=== PATIENT | male | born 1965 | race Caucasian/White ===

== ENCOUNTER 2019-05-02 10:00 | Outpatient (CLI) | payer OTHER, SELFPAY ==
--- NOTE | ~2019-05-02 | XR_ITS ---
EXAMINATION: XR lg joint inject/asp w image DATE: 05/02/2019 10:59 INDICATION: Unilateral primary osteoarthritis, left hip. TECHNIQUE: A time-out was performed to verify the patient's name, date of , and procedure to b e performed. The procedure including the risks, benefits, and alternatives was discussed with the pat ient. Risks discussed included bleeding and infection. The patient understood the risks and agreed to proceed. The skin overlying the left hip joint was prepped and draped in usual sterile fashion. An esthetic was administered with 1% lidocaine subcutaneously. A 22 G needle was advanced under fluoros copic guidance into the joint. Injection of 1 mL of Omnipaque 240 confirmed intra-articular position of the needle. Subsequently, injectate consisting of 5 mL 1% lidocaine and 2 mL 10 mg/mL Kenalog wa s instilled. The needle was removed and the entry site was cleaned and dressed. There were no immed iate complications. Fluoroscopy exposure time was 0.1 minutes. The total number of images was 2. FINDINGS: Real-time fluoroscopy demonstrates the needle in the left hip joint. There is contrast in t he hip joint and iliopsoas bursa. Patient's pain prior to procedure:3/10. Patient's pain following t he procedure: 0/10. IMPRESSION: 1. Left hip joint injection of local anesthetic and steroid with decrease in the patient's presenting pain. Reviewed, dictated and finalized at location A. IMPRESSION: 1. Left hip joint injection of local anesthetic and steroid with decrease in th e patient's presenting pain.
== END 2019-05-02 10:01 | disposition home or self-care (01) ==
PROVIDERS: PCP Family Medicine; Visit Provider Orthopaedic Surgery
DX: M16.11 Unilateral primary osteoarthritis, right hip (principal)
CPT/HCPCS: 20610; 77002; Q9966

== ENCOUNTER 2019-07-04 09:00 | Outpatient (RCR) | payer OTHER, SELFPAY ==
--- NOTE | 2019-05-09 15:46 | PTOPEVAL ---
Thank you for referring this patient to [facility]. Please review, sign, date and return this plan of care NICOLE. Pt referred to therapy due to low back pain and left hip pain. He requires additional skilled therapy to address impairments of muscle weakness, decreased hip motion, and soft tissue restriction. He requires additional skilled therapy 1-2x/wk x 6 wk. I agree with and certify that the following plan of care is medically necessary. Referring Physician Date Attending Provider: Kevin Frias MD Referring Provider: *PT Outpatient Evaluation Start: 05/09/19 14:45 Freq: Status: Active Protocol: Document 05/09/19 14:44 CAP (Rec: 05/09/19 15:44 CAP [id number]) Therapy Assessment Status Assessment Status Assessment Status Evaluation Outpatient Past Medical History Musculoskeletal History Hx Arthritis Yes Hx Orthopedic Surgery Yes: RTC repair-right, and arthroscopic sx left Hx Other Musculoskeletal Disorders Yes: CTR- right Evaluation Information Problem Diagnosis left hip pain, OA left hip and back pain Onset 1 year Cause progression Subjective Information Pt c/o left hip pain and shruthi Query Text:As Reported By Patient/ low back. He reports increased Family pain of left hip with sitting , hip motion in seated position, sleeping. Reports difficulty riding his motorcycle. Pain increases with work activities of kneeling, climbing ladders and carrying objects. Improved hip pain with walking , but increases with prolonged walking. Reports his back pain is constant ache that is not relieved by any activity. Increased pain with trunk flex . He did have a fall over the weekned in the bathroom. Reports he received an injection in his left hip with improve pain. Diagnostic Tests X-Rays For This Problem Yes Previous Treatments Previous Treatments For This Problem not for hip or back Prior Level of Function Activity Level (Last 3 Months) Occupation albrecht Hand Dominance Right Activity of Daily Living Ability Independent Indoor/Home Mobility Independent Community Mobility Independent Stairs
--- NOTE | 2019-06-06 11:58 | PTOPEVAL ---
Thank you for referring Terry Headley to [facility]. Please review, sign, date and return this plan of care NICOLE. Pt has received 5 therapy visits to address hip and back pain. He is progressing towards his therapy goals with improved pain, improve function, improved LE strength. He requires additional skilled therapy to address remaining therapy goals, improve function and address soft tissue restrictions with decreased hip motion. Recommend 1x/wk x 4 wk. I agree with and certify that the following plan of care is medically necessary. Referring Physician Date Attending Provider: Kevin Frias MD Referring Provider: *PT Outpatient Evaluation Start: 05/09/19 14:45 Freq: Status: Active Protocol: Document 06/06/19 09:00 LATASHA (Rec: 06/06/19 09:37 CAP [id number]) Therapy Assessment Status Assessment Status Assessment Status Re-evaluation Outpatient Past Medical History Musculoskeletal History Hx Arthritis Yes Hx Orthopedic Surgery Yes: RTC repair-right, and arthroscopic sx left Hx Other Musculoskeletal Disorders Yes: CTR- right Evaluation Information Problem Diagnosis left hip pain, OA left hip and back pain Onset 1 year Cause progression Additional Evaluation Detail Reports he received an injection in his left hip with improve pain. Subjective Information Pt reports he is feeling Query Text:As Reported By Patient/ better since he started Family therapy. He reports only mild hip pain with prolonged sitting. The pain is not waking him at night. He is able to perform functional task of climbing ladder and carrying objecting is better, but he still has difficulty with getting on/off the ground. He has not been able to perform any longer distance walking, denies pain with walking for work task. He has not been able to ride his motorcycle due to weather. Pain Assessment Timing of Pain Assessment Timing of Pain Assessment Re-assessment Pain Scale Pain Scale Used Numeric (1 - 10) Self Report Pain Assessment Bilateral Lower Back Reported Pain Level 4 Pain Description Aching,Dull Pain Frequency Chronic,Continuous Lowest Pain Intensity 2 Greatest Pain Intensity 4 Pain Aggravating Factors
--- NOTE | 2019-07-04 11:41 | PTOPEVAL ---
Thank you for referring Terry Headley to [facility]. Please review, sign, date and return this plan of care NICOLE. Pt has received 9 therapy visits from 05/08-07/04/19 to address back and hip pain. He demonstrates improved motion, improved LE and trunk strength, decreased pain and improved function. He is performing a HEP indep. He has reached maximal potential with skilled therapy at this time. DC skilled therapy services at this time. I agree with and certify that the following plan of care is medically necessary. Referring Physician Date Attending Provider: Kevin Frias MD PT Discharge Summary *PT Outpatient Evaluation Start: 05/09/19 14:45 Freq: Status: Active Protocol: Document 07/04/19 09:03 LATASHA (Rec: 07/04/19 09:44 [facility] [id number]) Therapy Assessment Status Assessment Status Assessment Status Re-evaluation Evaluation Information Problem Diagnosis left hip pain, OA left hip and back pain Onset 1 year Cause progression Additional Evaluation Detail Reports he received an injection in his left hip with improve pain. x-ray on 06/26/19 shows thoraciclumbar scoliosis, joint spurs and degeneratice changes in lumbar region. Subjective Information He reports increased back and Query Text:As Reported By Patient/ hip pain the past week. He is Family having difficulty sleeping again. He does not have hip pain with sitting, but he is more active with the weather changes. He is again having difficulty negotiating ladder. No difficulty carrying objects. Denies any significant difficulty getting on/off the ground. Pain Assessment Timing of Pain Assessment Timing of Pain Assessment Re-assessment Pain Scale Pain Scale Used Numeric (1 - 10) Self Report Pain Assessment Bilateral Lower Back Reported Pain Level 3 Pain Description Aching,Dull Pain Frequency Chronic Lowest Pain Intensity 3 Greatest Pain Intensity 4 Pain Aggravating Factors Bending,Stair Climbing Pain Behaviors None Pain Relief Interventions Used By Exercise Patient Left Hip(s) Reported Pain Level 1 Pain Description Aching,Dull Pain Frequency Chronic,Con
== END 2019-07-04 12:00 | disposition home or self-care (01) ==
LOC: ANHPT 09:00
PROVIDERS: PCP Family Medicine; Visit Provider Orthopaedic Surgery
DX: M16.12 Unilateral primary osteoarthritis, left hip (principal); M54.5 Low back pain
CPT/HCPCS: 97110; 97140; 97162

== ENCOUNTER 2019-07-10 07:43 | Outpatient (CLI) | payer OTHER, SELFPAY ==
--- NOTE | ~2019-07-10 | MR_ITS ---
EXAMINATION: MR lumbar spine wo con DATE: 07/10/2019 08:49 INDICATION: Lumbar spondylosis TECHNIQUE: Magnetic resonance imaging (MRI) of the lumbar spine was performed without intravenous con trast. Sequences included sagittal T2-weighted FSE, sagittal T2-weighted FS FSE, sagittal T1-weighted FSE, and axial T2-weighted FSE. COMPARISON: Lumbar spine radiographs dated 07/06/2019 FINDINGS: Mild lumbar levocurvature. Sagittal alignment is normal. Vertebral body heights are normal. T1 hyperi ntense L1 hemangioma. Disc desiccation and mild disc height loss at L1-L2. Annular fissures and mild disc height loss at L4-L5 and moderate to severe disc height loss at L5-S1. Left-sided predominant fi brofatty degenerative endplate changes along the endplates at L5-S1. The conus medullaris terminates at L2. There is normal signal in the caudal spinal cord. Paravertebral soft tissues are unremarkable. The following disc levels are specifically discussed: T12-L1: The disc does not extend beyond the endplate margin. There is mild bilateral facet joint oste oarthritis. There is no neural foraminal stenosis. There is no central canal stenosis. L1-L2: Disc is mildly bulging. There is mild bilateral facet joint osteoarthritis. There is mild bila teral neural foraminal stenosis. There is mild central canal stenosis. L2-L3: Disc is mildly bulging. There is moderate bilateral facet joint osteoarthritis. There is mild bilateral neural foraminal stenosis. There is mild central canal stenosis. L3-L4: The disc does not extend beyond the endplate margin. There is hypertrophy of the ligamentum fl avum. There is moderate bilateral facet joint osteoarthritis. There is mild bilateral neural foramin al stenosis. There is mild central canal stenosis. L4-L5: Moderate diffuse disc bulge. There is hypertrophy of the ligamentum flavum. There is severe ri ght and moderate to severe left facet joint osteoarthritis. There is moderate right and moderate to s evere left neural foraminal stenosis. There is moderate central canal stenosis. L5-S1: Moderate diffuse disc bulge. There is moderate right and moderate to severe left facet joint o steoarthritis. There is moderate right and moderate to severe left neural foraminal stenosis. There i s mild central canal stenosis. IMPRESSION: 1. Moderate lumbar spondylosis. Reviewed, dictated and finalized at location A.
== END 2019-07-10 07:44 | disposition home or self-care (01) ==
PROVIDERS: PCP Family Medicine; Visit Provider Orthopaedic Surgery
DX: M47.816 Spondylosis without myelopathy or radiculopathy, lumbar region (principal)
CPT/HCPCS: 72148

== ENCOUNTER 2019-12-21 11:04 | Outpatient (CLI) | payer OTHER, SELFPAY ==
--- NOTE | ~2019-12-21 | MR_ITS ---
EXAMINATION: MR hip LT wo con DATE: 12/21/2019 12:56 INDICATION: Left hip pain TECHNIQUE: Magnetic resonance imaging (MRI) of the left hip was performed without intravenous contra st. Sequences included full-field axial PD-weighted FS FSE and T1-weighted FSE, coronal of the pelvis with PD-weighted FS FSE, small field of view of the left hip with axial PD-weighted FS FSE, sagitta l PD-weighted FS FSE and coronal PD weighted FS FSE. Additional radial T1-weighted FGR oriented ortho gonal to the acetabular rim were obtained for evaluation of the labrum. COMPARISON: Left hip radiographs dated 04/24/2019 FINDINGS: Bones/labrum/cartilage: Alignment is normal. No fracture, avascular necrosis or pathologic marrow replacing process. Severe left hip osteoarthritis with cartilage loss which appears to result in at or near dirs-es-avog apposi tion along the lateral side of the anterior to posterior joint space. There is prominent underlying s ubarticular edema and mild cystic change along the superior left acetabulum. There is marked degenera tive tearing of the left acetabular labrum which has a thickened macerated appearance. There is a lar ge multilobulated para labral cyst extending across the periphery of the anterosuperior to posterior superior labrum and extending along the reflected head of the left rectus femoris tendon. The para la bral cyst measures 5.2 cm AP and measures up to 1.8 x 1.4 cm in maximal transaxial dimensions. There is heterotopic ossification along the reflect head of the left rectus femoris tendon. Subarticular cy stic changes are seen along the superior right acetabulum where there is more mild nonuniform joint s pace narrowing but which is not diagnostically evaluated on the larger field of view images. Marginal osteophytes about the bilateral femoral heads, small on the right and moderate sized on the left. Mo derate lumbar spondylosis with moderate to severe disc height loss at L5-S1. Fluid: Small left hip joint effusion which communicates with a small amount of fluid extending cephalad with in the left iliopsoas bursa. Soft tissues: Normal and symmetric muscle bulk and signal in the pelvis and visualized proximal thighs. The iliopso as, gluteal and proximal hamstring tendons are normal. Limited evaluation of visceral organs of the p rubens is unremarkable including a normal appendix. No pathologically enlarged pelvic/inguinal lympha denopathy. IMPRESSION: 1. Severe left hip osteoarthritis with marked labral degeneration and associated large para labral cy st. 2. Moderate lumbar spondylosis. See separate lumbar spine MR report from 07/10/2019 for further detail . Reviewed, dictated and finalized at location A. ETIC ACCOUNT COORDINATOR IMPRESSION: 1. Severe left hip osteoarthritis with marked labral degeneration and associate d large para labral cyst. 2. Moderate lumbar spondylosis. See separate lumbar spine MR report from 020 for further detail.
== END 2019-12-21 11:05 | disposition home or self-care (01) ==
PROVIDERS: PCP Family Medicine; Visit Provider Neurological Surgery
DX: M16.12 Unilateral primary osteoarthritis, left hip (principal); M47.896 Other spondylosis, lumbar region
CPT/HCPCS: 73721

== ENCOUNTER 2022-01-18 07:36 | Outpatient (CLI) | payer OTHER, SELFPAY ==
[2022-01-18 18:50] LABS: Hemoglobin A1C 5.3 % (<5.7)
== END 2022-01-18 07:37 | disposition home or self-care (01) ==
LOC: ANHBWCLAB 07:37
PROVIDERS: PCP Family Medicine; Visit Provider Family Medicine
DX: R73.02 Impaired glucose tolerance (oral) (principal); M16.12 Unilateral primary osteoarthritis, left hip
CPT/HCPCS: 36415; 83036